=== PATIENT | female | born 1985 | race Caucasian/White ===

== ENCOUNTER → 2018-10-14 09:39 | Outpatient (CLI) | payer MEDICAID, SELFPAY ==
[2018-10-14 10:35] LABS: Basophils % 0.2 % (0.1-2.0); Eosinophils # 0.1 K/mm3 (0.0-0.4); Eosinophils % 1.4 % (0.1-12.0); Hematocrit 36.8 % (37.0-47.0); Hemoglobin 12.5 g/dL (12.2-16.2); Lymphocytes # 2.4 K/mm3 (0.7-4.5); Lymphocytes % 22.9 % (10-50); Mean Corpuscular HGB Conc 33.9 g/dL (31.8-35.4); Mean Corpuscular Volume 94.3 fl (81-99); Mean Platelet Volume 8.3 fl (7.4-10.4); Monocytes # 0.6 K/mm3 (0.1-1.0); Monocytes % 5.3 % (1.7-9.3); Neutrophils # 7.3 K/mm3 (1.8-7.8); Neutrophils % 70.2 % (37.0-80.0); Platelet Count 177 K/mm3 (142-424); Red Cell Distribution Width 13.2 % (11.5-17.5); White Blood Count 10.4 K/mm3 (4.8-10.8)
[2018-10-15 08:22] LABS: HIV Screen 4th Generation wRfx Non Reactive (Non Reactive); Rapid Plasma Reagin Ab Titer Non Reactive (NonRea<1:1)
[2018-10-15 10:51] LABS: Hepatitis B Surface Antigen Negative (Negative); Hepatitis C Antibody >11.0 s/co ratio (0.0-0.9); Rubella Antibodies, IgG 1.53 index (Immune >0.99)
== END ==
PROVIDERS: Visit Provider Nurse Practitioner Obstetrics & Gynecology
DX: Z34.90 Encounter for supervision of normal pregnancy, unspecified, unspecified trimester (principal)
CPT/HCPCS: 36415; 85025; 86592; 86703; 86762; 86850; 87340; 87380; G0432

== ENCOUNTER → 2018-10-20 13:07 | Outpatient (CLI) | payer MEDICAID, SELFPAY ==
--- NOTE | 2018-10-20 13:12 | US_ITS ---
US OB /maternal detail: INDICATION: ITS.REASON: US OB Complete ORDERING PHYSICIAN: Taz Rodriguez MD PATIENT AGE: 33 years TECHNIQUE: ultrasound transabdominal scanning. COMPARISON: No previous relevant studies. FINDINGS: Single viable intrauterine gestation. Cephalic position. Placenta: Posterior/Fundal placenta grade 1. There is average amount fluid. The cervix appears satisfactory. Closed and measuring 4 cm in length. Complete survey performed and was unremarkable on the submitted images as in PACS. No discrete anomalies identified on survey imaging by technologist. Active fetus. Three-vessel cord with satisfactory umbilical cord insertion. 4- chamber heart noted. Survey of brain & ventricles unremarkable. Face and neck survey unremarkable. Diaphragm and chest views unremarkable. Abdomen: Both kidneys noted and unremarkable. Stomach noted and satisfactory. Spine: Initially, the spine was not well demonstrated due to the position. The patient was asked to return for additional images. On the additional images, survey of the spine was satisfactory with no anomalies identified nor imaged. Both arms and legs noted. Amniotic Fluid: Adequate. Maternal adnexa: No significant findings. Measurements: Average ultrasound age 28w2d. Gestational Age 19w4d. Estimated due date by ultrasound age 0801/10/2019. Estimated weight 1116 grams. BPD = 29w2d OFD = 28w2d HC = 28w3d AC = 27w2d FL = 28w0d Growth Percentile= 98% Heart Rate = 146 Cerebellum = not performed Humerus = 28w4d HC/AC is 1.14 (1.09-1.26). CI is 79% (70-86%). FL/BPD is 72%. FL/AC is 23%. HEIKE was 19 cm IMPRESSION: There is a single live fetus which is in cephalic presentation. Average ultrasound age is 28 weeks and 2 days. All parameters correlate. No obvious anomalies. Please see above for detailed
== END ==
PROVIDERS: PCP Internal Medicine; Referring Provider Nurse Practitioner Obstetrics & Gynecology; Visit Provider Nurse Practitioner Obstetrics & Gynecology
DX: Z36.0 Encounter for antenatal screening for chromosomal anomalies (principal)
CPT/HCPCS: 76811

== ENCOUNTER → 2018-10-23 08:18 | Outpatient (CLI) | payer OTHER, SELFPAY | PROVIDERS: Visit Provider Nurse Practitioner Obstetrics & Gynecology | DX: Z36.0 Encounter for antenatal screening for chromosomal anomalies (principal) ==

== ENCOUNTER 2018-11-01 21:53 | Outpatient (CLI) | payer OTHER, SELFPAY ==
[2018-11-01 22:09] VITALS: BMI 27.1
[2018-11-01 22:13] LABS: Microscopic, Urine URINE MICROSCOPIC (MICROSCOPIC)
[2018-11-01 22:22] LABS: Appearance,Urine SL CLOUDY (Clear); Blood, Urine Negative (Negative); Color,Urine DK YELLOW (Yellow); Glucose,Urine (UA) Negative (Negative); Ketones,Urine TRACE (Negative); Leukocyte Esterase,Urine TRACE (Negative); Nitrate,Urine Negative (Negative); PH,Urine 6.5 (5.0-8.5); Protein,Urine TRACE (Negative); Specific Gravity, Urine 1.025 (1.005-1.030)
[2018-11-01 22:23] LABS: Amphetamine/Metha Screen,Urine Negative ng/mL (<1000); Barbiturates Screen,Urine Negative ng/mL (<200); Benzodiazepines Screen,Urine Negative ng/mL (<200); Cannabinoid Screen,Urine Negative ng/mL (<50); Cocaine Screen,Urine Negative ng/mL (<300); Methadone Screen,Urine Negative ng/mL (<300); Opiate Screen,Urine Negative ng/mL (<300); Phencyclidine Screen,Urine Negative ng/mL (<25)
[2018-11-01 22:25] VITALS: BP 118/68; PULSE 100; RESP 16; TEMP 37.1; O2SAT 97; BMI 27.1
[2018-11-01 22:25] LABS: Bilirubin,Urine Negative (Negative)
[2018-11-01 22:27] LABS: Amorphous Sediment,Urine Trace /lpf; Bacteria,Urine Trace /lpf; Mucus,Urine 4+ /lpf; Squamous Epithelial Cell,Urine 20-50 #/hpf (0-5)
== END 2018-11-01 23:59 | disposition home or self-care (01) ==
LOC: OBOUT 21:59 → OB 22:00
PROVIDERS: Visit Provider Obstetrics & Gynecology
DX: O26.893 Other specified pregnancy related conditions, third trimester (principal); Z3A.29 29 weeks gestation of pregnancy; R10.11 Right upper quadrant pain
CPT/HCPCS: 59025; 80305; 81001; 96360

== ENCOUNTER 2018-11-14 18:20 | Outpatient (CLI) | payer MEDICAID, SELFPAY ==
[2018-11-14 18:33] VITALS: BMI 27.6
[2018-11-14 18:49] LABS: Microscopic, Urine URINE MICROSCOPIC (MICROSCOPIC)
[2018-11-14 18:51] LABS: Appearance,Urine SL CLOUDY (Clear); Bilirubin,Urine Negative (Negative); Blood, Urine Negative (Negative); Color,Urine YELLOW (Yellow); Glucose,Urine (UA) Negative (Negative); Ketones,Urine Negative (Negative); Leukocyte Esterase,Urine Negative (Negative); Nitrate,Urine Negative (Negative); PH,Urine 6.5 (5.0-8.5); Protein,Urine Negative (Negative)
[2018-11-14 18:59] LABS: Amphetamine/Metha Screen,Urine Negative ng/mL (<1000); Barbiturates Screen,Urine Negative ng/mL (<200); Benzodiazepines Screen,Urine Negative ng/mL (<200); Cannabinoid Screen,Urine Negative ng/mL (<50); Cocaine Screen,Urine Negative ng/mL (<300); Methadone Screen,Urine Negative ng/mL (<300); Opiate Screen,Urine Negative ng/mL (<300); Phencyclidine Screen,Urine Negative ng/mL (<25)
[2018-11-14 19:16] LABS: Amorphous Sediment,Urine Trace /lpf; Bacteria,Urine Trace /lpf
[2018-11-14 19:24] VITALS: BP 120/65; PULSE 100; RESP 18; TEMP 36.8; O2SAT 94; BMI 27.6
[2018-11-14 19:41] LABS: Fetal Fibronectin (Rapid) Negative (Negative)
== END 2018-11-14 21:15 | disposition home or self-care (01) ==
LOC: OBOUT 18:23 → OB 18:24
PROVIDERS: PCP Internal Medicine; Visit Provider Obstetrics & Gynecology
DX: O47.03 False labor before 37 completed weeks of gestation, third trimester (principal); Z3A.31 31 weeks gestation of pregnancy
CPT/HCPCS: 59025; 80305; 81001; 82731; 96360; 96361; J2405

== ENCOUNTER 2018-11-17 07:53 | Outpatient (CLI) | payer MEDICAID, SELFPAY ==
[2018-11-17 08:15] VITALS: BP 118/65; PULSE 111; RESP 18; TEMP 37.2; O2SAT 100; BMI 27.6
[2018-11-17 08:26] LABS: Microscopic, Urine URINE MICROSCOPIC (MICROSCOPIC)
[2018-11-17 08:29] LABS: Appearance,Urine CLOUDY (Clear); Blood, Urine Negative (Negative); Color,Urine YELLOW (Yellow); Glucose,Urine (UA) Negative (Negative); Ketones,Urine Negative (Negative); Leukocyte Esterase,Urine Negative (Negative); Nitrate,Urine Negative (Negative); PH,Urine 6.5 (5.0-8.5); Protein,Urine TRACE (Negative); Urobilinogen,Urine 0.2 EU/dl (0.2)
[2018-11-17 08:32] LABS: Bilirubin,Urine Negative (Negative)
[2018-11-17 08:35] LABS: Bacteria,Urine Trace /lpf; Squamous Epithelial Cell,Urine Occasional #/hpf (0-5); WBC,Urine Occasional #/hpf (0-3)
[2018-11-17 08:46] LABS: Amphetamine/Metha Screen,Urine Negative ng/mL (<1000); Barbiturates Screen,Urine Negative ng/mL (<200); Benzodiazepines Screen,Urine Negative ng/mL (<200); Cannabinoid Screen,Urine Negative ng/mL (<50); Cocaine Screen,Urine Negative ng/mL (<300); Methadone Screen,Urine Negative ng/mL (<300); Opiate Screen,Urine Negative ng/mL (<300); Phencyclidine Screen,Urine Negative ng/mL (<25)
== END 2018-11-17 09:04 | disposition home or self-care (01) ==
LOC: OBOUT 07:55 → OB 07:55
PROVIDERS: PCP Nurse Practitioner Obstetrics & Gynecology; Visit Provider Nurse Practitioner Obstetrics & Gynecology
DX: O47.03 False labor before 37 completed weeks of gestation, third trimester (principal); Z3A.32 32 weeks gestation of pregnancy
CPT/HCPCS: 59025; 80305; 81001

== ENCOUNTER 2018-11-27 21:52 | Outpatient (CLI) | payer MEDICAID, SELFPAY ==
[2018-11-27 22:09] VITALS: BMI 59.8
[2018-11-27 22:43] VITALS: BP 112/76; PULSE 82; RESP 18; TEMP 36.6
[2018-11-27 22:44] VITALS: BMI 27.1
[2018-11-27 22:49] LABS: Microscopic, Urine URINE MICROSCOPIC (MICROSCOPIC)
[2018-11-27 22:53] LABS: Appearance,Urine CLEAR (Clear); Bilirubin,Urine Negative (Negative); Blood, Urine Negative (Negative); Color,Urine YELLOW (Yellow); Glucose,Urine (UA) Negative (Negative); Ketones,Urine Negative (Negative); Leukocyte Esterase,Urine 1+ (Negative); Nitrate,Urine Negative (Negative); PH,Urine 6.5 (5.0-8.5); Protein,Urine Negative (Negative); Specific Gravity, Urine 1.015 (1.005-1.030)
[2018-11-27 22:58] LABS: Amphetamine/Metha Screen,Urine Negative ng/mL (<1000); Barbiturates Screen,Urine Negative ng/mL (<200); Benzodiazepines Screen,Urine Negative ng/mL (<200); Cannabinoid Screen,Urine Negative ng/mL (<50); Cocaine Screen,Urine Negative ng/mL (<300); Methadone Screen,Urine Negative ng/mL (<300); Opiate Screen,Urine Negative ng/mL (<300); Phencyclidine Screen,Urine Negative ng/mL (<25)
[2018-11-27 23:03] LABS: Bacteria,Urine 1+ /lpf
== END 2018-11-28 01:25 | disposition home or self-care (01) ==
LOC: OBOUT 22:00 → OB 22:01
PROVIDERS: PCP Nurse Practitioner Obstetrics & Gynecology; Visit Provider Nurse Practitioner Obstetrics & Gynecology
DX: O47.03 False labor before 37 completed weeks of gestation, third trimester (principal); Z3A.33 33 weeks gestation of pregnancy; R12 Heartburn; K92.0 Hematemesis
CPT/HCPCS: 59025; 80305; 81001; 87086; 87088; 87186; 96360; 96372

== ENCOUNTER 2018-11-28 17:19 | Outpatient (CLI) | payer MEDICAID, SELFPAY ==
[2018-11-28 17:36] VITALS: BP 110/65; PULSE 94; RESP 18; TEMP 36.6; O2SAT 96; BMI 27.4
[2018-11-28 18:08] LABS: Fetal Membrane Rupture (Rapid) Negative (Negative)
[2018-11-28 18:20] LABS: Amphetamine/Metha Screen,Urine Negative ng/mL (<1000); Barbiturates Screen,Urine Negative ng/mL (<200); Benzodiazepines Screen,Urine Negative ng/mL (<200); Cannabinoid Screen,Urine Negative ng/mL (<50); Cocaine Screen,Urine Negative ng/mL (<300); Methadone Screen,Urine Negative ng/mL (<300); Opiate Screen,Urine Negative ng/mL (<300); Phencyclidine Screen,Urine Negative ng/mL (<25)
== END 2018-11-28 18:30 | disposition home or self-care (01) ==
LOC: OBOUT 17:21 → OB 17:22
PROVIDERS: Visit Provider Nurse Practitioner Obstetrics & Gynecology
DX: O47.03 False labor before 37 completed weeks of gestation, third trimester (principal); Z3A.33 33 weeks gestation of pregnancy
CPT/HCPCS: 59025; 80305; 84112

== ENCOUNTER 2018-12-04 17:27 | Outpatient (CLI) | payer SELFPAY ==
[2018-12-04 17:36] VITALS: BP 112/64; PULSE 109; RESP 18; TEMP 36.8; O2SAT 96; BMI 26.9
[2018-12-04 18:04] LABS: Microscopic, Urine URINE MICROSCOPIC (MICROSCOPIC)
[2018-12-04 18:13] LABS: Appearance,Urine CLOUDY (Clear); Blood, Urine Negative (Negative); Color,Urine YELLOW (Yellow); Glucose,Urine (UA) Negative (Negative); Ketones,Urine TRACE (Negative); Leukocyte Esterase,Urine 1+ (Negative); Nitrate,Urine Negative (Negative); Protein,Urine Negative (Negative); Specific Gravity, Urine 1.015 (1.005-1.030)
[2018-12-04 18:17] LABS: Bilirubin,Urine Negative (Negative)
[2018-12-04 18:18] LABS: Amorphous Sediment,Urine 4+ /lpf; Amphetamine/Metha Screen,Urine Negative ng/mL (<1000); Barbiturates Screen,Urine Negative ng/mL (<200); Benzodiazepines Screen,Urine Negative ng/mL (<200); Cannabinoid Screen,Urine Negative ng/mL (<50); Cocaine Screen,Urine Negative ng/mL (<300); Methadone Screen,Urine Negative ng/mL (<300); Opiate Screen,Urine Negative ng/mL (<300); Phencyclidine Screen,Urine Negative ng/mL (<25); Squamous Epithelial Cell,Urine 20-50 #/hpf (0-5)
== END 2018-12-04 18:30 | disposition home or self-care (01) ==
LOC: OBOUT 17:29 → OB 17:30
PROVIDERS: PCP Nurse Practitioner Obstetrics & Gynecology; Visit Provider Obstetrics & Gynecology
DX: O47.03 False labor before 37 completed weeks of gestation, third trimester (principal); Z3A.34 34 weeks gestation of pregnancy
CPT/HCPCS: 59025; 80305; 81001; 87086

== ENCOUNTER → 2018-12-09 16:43 | Outpatient (CLI) | payer SELFPAY | PROVIDERS: Visit Provider Obstetrics & Gynecology | DX: Z34.90 Encounter for supervision of normal pregnancy, unspecified, unspecified trimester (principal) | CPT/HCPCS: 86403 ==

== ENCOUNTER 2018-12-11 10:55 | Outpatient (CLI) | payer SELFPAY ==
[2018-12-11 11:16] VITALS: BP 121/74; PULSE 110; RESP 20; TEMP 36.7; O2SAT 95; BMI 27.1
[2018-12-11 11:36] LABS: Microscopic, Urine URINE MICROSCOPIC (MICROSCOPIC)
[2018-12-11 11:37] LABS: Appearance,Urine CLEAR (Clear); Blood, Urine Negative (Negative); Color,Urine YELLOW (Yellow); Glucose,Urine (UA) Negative (Negative); Ketones,Urine 1+ (Negative); Leukocyte Esterase,Urine TRACE (Negative); Nitrate,Urine Negative (Negative); PH,Urine 6.5 (5.0-8.5); Protein,Urine TRACE (Negative); Specific Gravity, Urine 1.015 (1.005-1.030)
[2018-12-11 11:41] LABS: Fetal Membrane Rupture (Rapid) Positive (Negative)
[2018-12-11 11:42] LABS: Bilirubin,Urine 1+ (Negative)
[2018-12-11 11:46] LABS: Amphetamine/Metha Screen,Urine Negative ng/mL (<1000); Barbiturates Screen,Urine Negative ng/mL (<200); Benzodiazepines Screen,Urine Negative ng/mL (<200); Cannabinoid Screen,Urine Negative ng/mL (<50); Cocaine Screen,Urine Negative ng/mL (<300); Methadone Screen,Urine Negative ng/mL (<300); Opiate Screen,Urine Negative ng/mL (<300); Phencyclidine Screen,Urine Negative ng/mL (<25)
[2018-12-11 11:57] LABS: Bacteria,Urine 1+ /lpf
--- NOTE | 2018-12-11 13:55 | HMH.ACPN2 ---
Internal Medicine - PN: Subj *Date: 12/11/18 *Time: 13:55 Interval history: @ 36 [birth year] presented to triage with SROM occurring at approximately 9am today. She denied regular contractions or vaginal bleeding and reported normal movement. She had received care with Dr. Rodriguez during this , although her first visit was in the second trimester complicated by chronic hepatitis C, a history of 2 previous c sections, and an unspecified/undiagnosed mental health disorder. 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 directly; at other times she receives these communications through covert messages on the TV. 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 When she was referred for psychiatric assessment, she refused this consultation. She also repeatedly refused to answer any questions about her medical/surgical history, stating that all of this information was confidential and classified. Her living situation was not entirely clear; she reported that she currently lived with her adoptive mother, but her biological mother typically accompanied her to visits and was also with her during the numerous times she was evaluated in OB triage. Neither woman could specify if any formal psychiatric/mental health disorder had ever been identified, and to the best of everyone's knowledge, there was no classification of legal incompetence (for the purpose of consent). She had a history of 2 previous CS, both of which were performed prior to term, and from the little information the patient would provide, appeared to have been done for distress during labor, but she was unwilling to sign a release form to obtain her medical records from those deliveries, so there was no available OP note to even confirm if these surgeries involved a low transverse or vertical uterine incision. Dr. Rodriguez had informed her on numerous occasions that he did not consider her to be an appropriate candidate for TOLAC, and that her risk of uterine dehiscence after 2 uterine incisions (and possible vertical uterine incision) was too high to allow her to . I also counseled her that I was in agreement with this assessment when I saw her for a visit this week in Dr. Rodriguez's absence. She informed me that she had seen a physician at [facility], who had calculated a 95% chance of successful and had advised her that he would allow her to have a vaginal delivery. She informed me that it was her intention to transfer her care to this physician in [place], but when I gave her the release form to allow us to provide copies of her medical records during this to this physician, she refused to sign it and accused me of violating her HIPAA rights. Her biological mother does not want her to attempt a TOLAC because of the increased maternal and risk, and when the patient had SROM this morning, her mother brought her to [facility] instead of driving to [facility], because she knew that we would not allow her to . The patient is adamantly refusing operative intervention of any kind, and states that she is unwilling to have a delivery as an elective repeat CS, or for any complications which may arise, such as distress, prolapsed umbilical cord, etc. Risk management and hospital administrative personal were called to assist with this matter, and the patient became increasingly hostile (towards both her family and the hospital staff), insisting that this was not anyone's decision but hers, and that it was her opinion that she was not receiving appropriate care from anyone at this hospital. She refused
--- NOTE | 2018-12-11 14:47 | P.PN_ITS ---
Internal Medicine - PN: Subj *Date: 12/11/18 *Time: 13:55 Interval history: @ 36 09/[birth year] presented to triage with SROM occurring at approximately 9am today. She denied regular contractions or vaginal bleeding and reported normal movement. She had received care with Dr. Rodriguez during this , although her first visit was in the second trimester complicated by chronic hepatitis C, a history of 2 previous c sections, and an unspecified/undiagnosed mental health disorder. 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 When she was referred for psychiatric assessment, she refused this consultation. She also repeatedly refused to answer any questions about her medical/surgical history, stating that all of this information was confidential and classified. Her l iving situation was not entirely clear; she reported that she currently lived with her adoptive mother, but her biological mother typically accompanied her to visits and was also with her during the numerous times she was evaluated in OB triage. Neither woman could specify if any formal psychiatric/mental health disorder had ever been identified, and to the best of everyone's knowledge, there was no classification of legal incompetence (for the purpose of consent). She had a history of 2 previous CS, both of which were performed prior to term, and from the little information the patient would provide, appeared to have been done for distress during labor, but she was unwilling to sign a release form to obtain her medical records from those deliveries, so there was no available OP note to even confirm if these surgeries involved a low transverse or vertical uterine incision. Dr. Rodriguez had informed her on numerous occasions that he did not consider her to be an appropriate candidate for TOLAC, and that her risk of uterine dehiscence after 2 uterine incisions (and possible vertical uterine incision) was too high to allow her to . I also counseled her that I was in agreement with this assessment when I saw her for a visit this week in Dr. Rodriguez's absence. She informed me that she had seen a physician at [facility], who had calculated a 95% chance of successful and had advised her that he would allow her to have a vaginal delivery. She informed me that it was her intention to transfer her care to this physician in [place], but when I gave her the release form to allow us to provide copies of her medical records during this to this physician, she refused to sign it and accused me of violating her HIPAA rights. Her biological mother does not want her to attempt a TOLAC because of the increased maternal and risk, and when the patient had SROM this morning, her mother brought her to [facility] instead of driving to [facility], because she knew that we would not allow her to . The patient is adamantly refusing operative intervention of any kind, and states that she is unwilling to have a delivery as an elective repeat CS, or for any complications which may arise, such as distress, prolapsed umbilical cord, etc. Risk management and hospital administrative personal were called to assist with this matter, and the patient became increasingly hostile (towards both her fami
== END 2018-12-11 13:15 | disposition left against medical advice (07) ==
LOC: OBOUT 10:56 → OB 11:02
PROVIDERS: Visit Provider Obstetrics & Gynecology
DX: O47.03 False labor before 37 completed weeks of gestation, third trimester (principal); Z3A.35 35 weeks gestation of pregnancy
CPT/HCPCS: 59025; 80305; 81001; 84112